=== PATIENT | female | born 1965 | race African-American/Black ===

== ENCOUNTER 2019-07-31 08:33 | Emergency (ER) | payer OTHER ==
[2019-07-31 08:38] VITALS: BP 115/75; PULSE 65; TEMP 97.7; BMI 26.8
--- NOTE | 2019-07-31 09:03 | PDOC ---
History of Present Illness - General Chief Complaint: Back Pain Stated Complaint: BACK PAIN Time Seen by Provider: 07/31/19 08:42 History Source: Patient Exam Limitations: No Limitations Past History - Past Medical History Allergies/Adverse Reactions: Allergies Allergy/AdvReac Type Severity Reaction Status Date / Time No Known Allergies Allergy Verified 07/31/19 08:38 Home Medications: Ambulatory Orders NK [No Known Home Medication] 07/31/19 COPD: No - Psycho Social/Smoking Cessation Hx Smoking Status: No Smoking History: Former smoker Have you smoked in the past 12 months: No Number of Cigarettes Smoked Daily: 6 Information on smoking cessation initiated: No *Physical Exam - Vital Signs Last Vital Signs Temp Pulse Resp BP Pulse Ox 97.7 F 65 18 115/75 98 07/31/19 08:35 07/31/19 08:35 07/31/19 08:35 07/31/19 08:35 07/31/19 08:35 - Physical Exam General Appearance: No: Apparent Distress Respiratory/Chest: positive: Lungs Clear, Normal Breath Sounds. negative: Respiratory Distress Cardiovascular: positive: Regular Rhythm, Regular Rate, S1, S2. negative: Murmur Musculoskeletal: negative: Muscle Spasm, Vertebral Tenderness Extremity: positive: Normal Inspection, Normal Range of Motion. negative: Tender, Swelling, Calf Tenderness Neurologic: positive: Alert, Normal Mood/Affect, Motor Strength 5/5, Other ( normal gait) Medical Decision Making - Medical Decision Making 53 y/o F with no sig pmh presents s/p fall out of rolling chair at work 2 days ago. Patient fell on L side, mainly along hip. Denies head/neck trauma. Has mild pain along L hip radiating along thigh. Has been taking Motrin and using heating pads which has helped with pain. Came to ED on insistence of staff at work. Is not filing worker's compensation. Denies numbness/tingling/weakness of extremities, sob, cp, abd pain, n/v, back pain. Likely muscular pain No concern for hip fracture/dislocation given patient is ambulating normally Does not want pain meds currently Stable for dc 07/31/19 08:59 Discharge - Discharge Information Problems reviewed: Yes Clinical Impression/Diagnosis: Left hip pain Condition: Stable Disposition: HOME - Admission No - Additional Discharge Information Prescription Drug Monitoring Program (I-STOP) results: I-STOP not reviewed - Follow up/Referral - Patient Discharge Instructions Patient Printed Discharge Instructions: DI for Hip Pain Additional Instructions: Thank you for choosing [facility]. It was a pleasure taking care of you. You may take Tylenol 650 mg or Motrin 600 mg every 6 hours by mouth as needed for mild to moderate pain. Take Motrin with food. Do not take more than 4000 mg of Tylenol in 1 day. Return to the Emergency Department if your symptoms worsen or persist, you have weakness of extremities or other concerning symptoms. - Post Discharge Activity
== END 2019-07-31 09:08 | disposition home or self-care (01) ==
LOC: JERFT 08:33
DX: M25.552 Pain in left hip (principal); W07.XXXA Fall from chair, initial encounter; Y93.89 Activity, other specified; Y92.238 Other place in hospital as the place of occurrence of the external cause; Y99.0 Civilian activity done for income or pay
CPT/HCPCS: 99282-25

== ENCOUNTER 2020-12-24 12:50 | Emergency (ER) | payer OTHER ==
[2020-12-24 12:58] VITALS: BP 120/64; PULSE 65; BMI 26.6
[2020-12-24] MEDS ORDERED: IBUPROFEN 600 MG TABLET (FP) PO ONE ×2 (13:27→13:29)
== END 2020-12-24 14:47 | disposition home or self-care (01) ==
LOC: JERFT 12:50
DX: M79.671 Pain in right foot (principal)
CPT/HCPCS: 73630-TC-RT-FY; 99283-25

== ENCOUNTER 2021-03-18 16:28 | Emergency (ER) | payer OTHER ==
[2021-03-18 16:50] VITALS: BP 163/92; PULSE 66; TEMP 97.2; BMI 26.9
== END 2021-03-18 17:17 | disposition home or self-care (01) ==
LOC: JER 16:28
DX: J06.9 Acute upper respiratory infection, unspecified (principal); Z20.822 Contact with and (suspected) exposure to COVID-19
CPT/HCPCS: 99283-25

== ENCOUNTER 2025-03-20 08:30 | Emergency (ER) | payer OTHER ==
[2025-03-20 08:36] VITALS: BP 138/75; PULSE 65; RESP 18; TEMP 98.2; BMI 25.7
[2025-03-20] MEDS ORDERED: ACETAMINOPHEN 325 MG TABLET (FP) ONE (09:00)
[2025-03-20] MEDS: ACETAMINOPHEN 500 MG TABLET (FP) PO ONE (09:02)
== END 2025-03-20 10:59 | disposition home or self-care (01) ==
LOC: JERFT 08:30
PROC: 2W3CX1Z Immobilization of Right Lower Arm using Splint (ICD-10-PCS; principal; 2025-03-20)
DX: S60.211A Contusion of right wrist, initial encounter (principal); W19.XXXA Unspecified fall, initial encounter
CPT/HCPCS: 73090-TC-RT-FY; 73110-TC-RT-FY; 73130-TC-RT-FY; 99283-25